=== PATIENT | female | born 1955 | race Caucasian/White ===

== ENCOUNTER 2022-07-09 19:21 | Observation (INO) | payer OTHER ==
[~2022-07-09] VITALS: Ht 162.6 cm; Wt 59.0 kg
[2022-07-09 20:08] LABS: BASO % 0.2 % (0.0-1.0); EOS % 0.2 % (0.0-3.0); HEMATOCRIT 40.8 % (36.0-47.0); HEMOGLOBIN 13.5 g/dl (12.0-15.5); LYMPH # 1.4 10^3/uL (1.5-5.0); MEAN CORPUSCULAR HEMOGLOBIN 28.8 pg (27.0-33.0); MEAN CORPUSCULAR HGB CONC 33.1 g/dl (32.0-36.5); MEAN CORPUSCULAR VOLUME 87.2 fl (80.0-96.0); MONO # 0.3 10^3/uL (0.0-0.8); MONO % 4.1 % (2.0-8.0); NEUTROPHILS # 6.4 10^3/uL (1.5-8.5); NEUTROPHILS % 78.3 % (36.0-66.0); PLATELET COUNT, AUTOMATED 296 10^3/uL (150-450); RED BLOOD COUNT 4.68 10^6/uL (4.00-5.40); WHITE BLOOD COUNT 8.2 10^3/uL (4.0-10.0)
[2022-07-09 20:38] LABS: CPK CREATINE PHOSPHOKINASE 80 U/L (26-192)
[2022-07-09 20:44] LABS: BLOOD UREA NITROGEN 12 MG/DL (7-18); CALCIUM LEVEL 9.2 MG/DL (8.8-10.2); CARBON DIOXIDE LEVEL 27 MEQ/L (21-32); CHLORIDE LEVEL 104 MEQ/L (98-107); CREATININE FOR GFR 0.58 MG/DL (0.55-1.30); GLOMERULAR FILTRATION RATE > 60.0 (>45); GLUCOSE, FASTING 153 MG/DL (70-100); NT-PRO BNP 398 PG/ML (<125); POTASSIUM SERUM 4.6 MEQ/L (3.5-5.1); SODIUM LEVEL 136 MEQ/L (136-145); THYROID STIMULATING HORMONE 0.245 uIU/ML (0.358-3.740)
[2022-07-09] MEDS ORDERED: NS 1,000 ML IV ONE (22:40)
[2022-07-09] MEDS ORDERED: ONDANSETRON 4MG 2ML VIAL IV ONE (22:40)
[2022-07-09 22:52] LABS: MAGNESIUM LEVEL 1.8 MG/DL (1.8-2.4)
[2022-07-09 23:19] LABS: D-DIMER QUANT 1793.87 ng/ml (<500)
[2022-07-09 23:40] LABS: CPK CREATINE PHOSPHOKINASE 79 U/L (26-192)
[2022-07-09] MEDS ORDERED: ISOVUE-370 76% 100ML VIAL As Ordered ONE (23:51)
[2022-07-10] MEDS ORDERED: MECLIZINE 25 MG TABLET PO ONE (01:40)
[2022-07-10] MEDS ORDERED: MECL-86 PO (02:14)
[2022-07-10] MEDS ORDERED: LEVO75TA4 PO (02:14)
[2022-07-10] MEDS ORDERED: AMLO1TAB25 PO (02:14)
[2022-07-10] MEDS ORDERED: LOSA50TA5 PO (02:14)
[2022-07-10] MEDS ORDERED: METF500T13 PO (02:14)
[2022-07-10] MEDS ORDERED: ATOR1TAB19 PO (02:14)
[2022-07-10] MEDS ORDERED: HOME MED LIST COMPLETE! XX SCH (02:15)
[2022-07-10] MEDS ORDERED: LORazepam 0.5 MG TAB PO PRN (02:50)
[2022-07-10] MEDS ORDERED: ACETAMINOPHEN TAB 650MG DOSE (2X325MG) PO PRN (02:50)
[2022-07-10] MEDS ORDERED: MECLIZINE 25 MG TABLET PO PRN (02:50)
[2022-07-10] MEDS ORDERED: LEVOTHYROXINE 75MCG TABLET (0.075MG) PO SCH (06:00)
[2022-07-10] MEDS ORDERED: metFORMIN (GLUCOPHAGE) 500MG TAB PO SCH (08:00)
[2022-07-10] MEDS ORDERED: hydroCHLOROthiazide 12.5 MG CAPSULE PO SCH (09:00)
[2022-07-10] MEDS ORDERED: LOSARTAN 50MG TABLET PO SCH (09:00)
[2022-07-10] MEDS ORDERED: ATORVASTATIN 10 MG TAB PO SCH (09:00)
[2022-07-10] MEDS ORDERED: ATOR40TA75 PO (10:27)
[2022-07-10] MEDS ORDERED: ASPI81CH33 PO (10:27)
[2022-07-10 11:00] VITALS: BP 132/57
[2022-07-10 11:01] VITALS: BP 138/63
[2022-07-10 11:03] VITALS: BP 123/62
[2022-07-10] MEDS ORDERED: CEFD300C41 PO ×2 (12:44→12:45)
== END 2022-07-10 13:09 | disposition home or self-care (01) ==
LOC: M ED 19:21 → M ED INP 19:22
PROVIDERS: ADMIT Internal Medicine; ATTEND Internal Medicine
DX: R42 Dizziness and giddiness (principal); R79.1 Abnormal coagulation profile; I44.7 Left bundle-branch block, unspecified; I65.22 Occlusion and stenosis of left carotid artery; E11.9 Type 2 diabetes mellitus without complications; I10 Essential (primary) hypertension; E78.5 Hyperlipidemia, unspecified; E03.9 Hypothyroidism, unspecified; N39.0 Urinary tract infection, site not specified; B96.20 Unspecified Escherichia coli [E. coli] as the cause of diseases classified elsewhere; H91.91 Unspecified hearing loss, right ear; H93.11 Tinnitus, right ear; Z79.899 Other long term (current) drug therapy; Z79.890 Hormone replacement therapy; Z79.84 Long term (current) use of oral hypoglycemic drugs
CPT/HCPCS: 70450; 70496; 70498; 80048; 81000; 81015; 82550; 83735; 83880; 84443; 85025; 85379; 85730; 87088; 87186; 87635; 93005; 93970; 96361; 96374; 97161; 97530; 99284; J2405; Q9967

== ENCOUNTER → 2022-07-31 | Outpatient (REF) | payer OTHER ==
[~2022-07-31] MED LIST: AMLO1TAB25 PO; ASPI81CH33 PO; ATOR1TAB19 PO; ATOR40TA75 PO; CEFD300C41 PO; LEVO75TA4 PO; LOSA50TA5 PO; MECL-86 PO; METF500T13 PO
== END ==
LOC: M LAB REF 17:07
PROVIDERS: ATTEND Physician Assistant
DX: E03.9 Hypothyroidism, unspecified (principal)

== ENCOUNTER → 2022-09-27 | Outpatient (REF) | payer OTHER, MEDICARE ==
[2022-09-27 17:39] LABS: HEMOGLOBIN A1c 6.5 % (4.0-6.0)
== END ==
LOC: M LAB REF 16:24
PROVIDERS: ATTEND Physician Assistant
DX: E11.9 Type 2 diabetes mellitus without complications (principal)

== ENCOUNTER → 2022-12-18 | Outpatient (REF) | payer MEDICARE ==
[2022-12-18 17:05] LABS: HEMATOCRIT 41.3 % (36.0-47.0); HEMOGLOBIN 13.2 g/dl (12.0-15.5); MEAN CORPUSCULAR HEMOGLOBIN 29.5 pg (27.0-33.0); MEAN CORPUSCULAR VOLUME 92.2 fl (80.0-96.0); PLATELET COUNT, AUTOMATED 304 10^3/uL (150-450); RED BLOOD COUNT 4.48 10^6/uL (4.00-5.40); WHITE BLOOD COUNT 4.8 10^3/uL (4.0-10.0)
[2022-12-18 17:06] LABS: ALBUMIN 3.9 G/DL (3.2-5.2); ALKALINE PHOSPHATASE 71 U/L (46-116); ALT/SGPT 29 U/L (7.0-40); AST/SGOT 22 U/L (<34); BILIRUBIN,TOTAL 0.7 MG/DL (0.3-1.2); BLOOD UREA NITROGEN 17 MG/DL (9-23); CARBON DIOXIDE LEVEL 29 MMOL/L (20-31); CHLORIDE LEVEL 105 MMOL/L (98-107); CHOLESTEROL LEVEL 159 MG/DL (<200); CREATININE FOR GFR 0.72 MG/DL (0.55-1.30); GLOMERULAR FILTRATION RATE > 60.0 (>45); GLUCOSE, FASTING 104 MG/DL (74-106); HDL CHOLESTEROL 61.1 MG/DL (>40); LDL CHOLESTEROL 85.9 MG/DL (<100); NON-HDL-C 97.9 MG/DL; POTASSIUM SERUM 4.4 MMOL/L (3.5-5.1); SODIUM LEVEL 139 MMOL/L (136-145); TRIGLYCERIDES LEVEL 60 MG/DL (<150)
[2022-12-18 17:33] LABS: THYROID STIMULATING HORMONE 10.788 uIU/ML (0.55-4.78)
[2022-12-18 17:35] LABS: HEMOGLOBIN A1c 6.5 % (4.0-6.0)
== END ==
LOC: M LAB REF 16:30
PROVIDERS: ATTEND Physician Assistant
DX: E11.9 Type 2 diabetes mellitus without complications (principal); E03.9 Hypothyroidism, unspecified

== ENCOUNTER → 2023-02-07 | Outpatient (REF) | payer MEDICARE ==
[~2023-02-07] MED LIST changes: +LEVO25TA5 PO
== END ==
LOC: M LAB REF 16:29
PROVIDERS: ATTEND Physician Assistant
DX: E03.9 Hypothyroidism, unspecified (principal)

== ENCOUNTER 2023-02-08 22:03 | Emergency (ER) | payer MEDICARE ==
[~2023-02-08] VITALS: Ht 162.6 cm; Wt 62.2 kg
[~2023-02-08 22:03] MED LIST changes: -LEVO25TA5 PO
[2023-02-08] MEDS ORDERED: LEVO25TA5 PO (22:15)
[2023-02-09] MEDS ORDERED: CAPS0.022 TOP (07:15)
[2023-02-09] MEDS ORDERED: DICL1GEL3 TOP (07:15)
[2023-02-09 07:56] VITALS: BP 160/70
== END 2023-02-09 07:58 | disposition home or self-care (01) ==
LOC: M ED 22:03
DX: S89.91XA Unspecified injury of right lower leg, initial encounter (principal); X58.XXXA Exposure to other specified factors, initial encounter; Y92.410 Unspecified street and highway as the place of occurrence of the external cause; Y93.01 Activity, walking, marching and hiking; Y99.8 Other external cause status; I10 Essential (primary) hypertension; E11.9 Type 2 diabetes mellitus without complications; Z79.82 Long term (current) use of aspirin; Z79.899 Other long term (current) drug therapy; Z79.84 Long term (current) use of oral hypoglycemic drugs

== ENCOUNTER → 2023-03-30 | Outpatient (REF) | payer MEDICARE ==
[~2023-03-30] MED LIST changes: +CAPS0.022 TOP; +DICL1GEL3 TOP; +LEVO25TA5 PO
== END ==
LOC: M LAB REF 16:31
PROVIDERS: ATTEND Physician Assistant
DX: E03.9 Hypothyroidism, unspecified (principal)

== ENCOUNTER → 2023-06-14 | Outpatient (CLI) | payer MEDICARE ==
[~2023-06-14] MED LIST changes: +DICL100G10 TOP; -DICL1GEL3 TOP
== END ==
LOC: M WUC 13:48
PROVIDERS: ATTEND Physician Assistant
DX: E03.9 Hypothyroidism, unspecified (principal)

== ENCOUNTER → 2023-08-15 | Outpatient (REF) | payer MEDICARE ==
[~2023-08-15] MED LIST changes: -CEFD300C41 PO; +CEFD300C42 PO
[2023-08-15 16:41] LABS: HEMATOCRIT 37.9 % (36.0-47.0); HEMOGLOBIN 12.5 g/dl (12.0-15.5); MEAN CORPUSCULAR HEMOGLOBIN 29.3 pg (27.0-33.0); PLATELET COUNT, AUTOMATED 277 10^3/uL (150-450); RED BLOOD COUNT 4.26 10^6/uL (4.00-5.40); WHITE BLOOD COUNT 5.3 10^3/uL (4.0-10.0)
[2023-08-15 17:08] LABS: CREATININE, URINE 105.9 MG/DL; MALB URINE SIEMENS < 3.0 MG/L; MAU/CREAT RATIO 2.8 MCG/MG (0.0-30.0)
[2023-08-15 17:11] LABS: ALBUMIN 3.6 G/DL (3.2-5.2); ALKALINE PHOSPHATASE 105 U/L (46-116); ALT/SGPT 38 U/L (7.0-40); AST/SGOT 23 U/L (<34); BILIRUBIN,TOTAL 0.7 MG/DL (0.3-1.2); BLOOD UREA NITROGEN 17 MG/DL (9-23); CALCIUM LEVEL 8.8 MG/DL (8.3-10.6); CARBON DIOXIDE LEVEL 29 MMOL/L (20-31); CHLORIDE LEVEL 104 MMOL/L (98-107); CHOLESTEROL LEVEL 168 MG/DL (<200); CHOLESTEROL RISK RATIO 2.66 (<5); GLOMERULAR FILTRATION RATE > 60.0 (>45); GLUCOSE, FASTING 112 MG/DL (74-106); LDL CHOLESTEROL 91.8 MG/DL (<100); POTASSIUM SERUM 4.5 MMOL/L (3.5-5.1); SODIUM LEVEL 139 MMOL/L (136-145); TOTAL PROTEIN 6.5 G/DL (5.7-8.2); TRIGLYCERIDES LEVEL 66 MG/DL (<150)
[2023-08-15 17:12] LABS: HEMOGLOBIN A1c 6.6 % (4.0-6.0); THYROID STIMULATING HORMONE 2.625 uIU/ML (0.55-4.78)
== END ==
LOC: M LAB REF 16:13
PROVIDERS: ATTEND Physician Assistant
DX: E11.9 Type 2 diabetes mellitus without complications (principal); I10 Essential (primary) hypertension; E03.9 Hypothyroidism, unspecified

== ENCOUNTER → 2024-01-01 | Outpatient (REF) ==
[~2024-01-01] MED LIST changes: +CEFD1CAP9 PO; -CEFD300C42 PO
== END ==
LOC: M LAB 15:40
PROVIDERS: ATTEND Nurse Practitioner Adult Health
DX: Z01.89 Encounter for other specified special examinations (principal)

== ENCOUNTER → 2024-04-14 | Outpatient (CLI) | payer MEDICARE, OTHER | LOC: M RAD 13:38 | PROVIDERS: ATTEND Surgery | DX: I65.23 Occlusion and stenosis of bilateral carotid arteries (principal) ==

== ENCOUNTER → 2024-06-18 | Outpatient (REF) | payer MEDICARE, OTHER ==
[2024-06-18 18:29] LABS: HEMATOCRIT 36.8 % (36.0-47.0); HEMOGLOBIN 12.1 g/dl (12.0-15.5); MEAN CORPUSCULAR HEMOGLOBIN 29.7 pg (27.0-33.0); MEAN CORPUSCULAR HGB CONC 32.9 g/dl (32.0-36.5); MEAN CORPUSCULAR VOLUME 90.4 fl (80.0-96.0); PLATELET COUNT, AUTOMATED 287 10^3/uL (150-450); RED BLOOD COUNT 4.07 10^6/uL (4.00-5.40); WHITE BLOOD COUNT 6.1 10^3/uL (4.0-10.0)
[2024-06-18 18:40] LABS: ALBUMIN 3.5 G/DL (3.2-5.2); ALKALINE PHOSPHATASE 99 U/L (46-116); ALT/SGPT 25 U/L (7.0-40); AST/SGOT 18 U/L (<34); BILIRUBIN,TOTAL 0.6 MG/DL (0.3-1.2); BLOOD UREA NITROGEN 18 MG/DL (9-23); CALCIUM LEVEL 8.7 MG/DL (8.3-10.6); CARBON DIOXIDE LEVEL 28 MMOL/L (20-31); CHLORIDE LEVEL 108 MMOL/L (98-107); CHOLESTEROL LEVEL 172 MG/DL (<200); CHOLESTEROL RISK RATIO 2.43 (<5); CREATININE FOR GFR 0.67 MG/DL (0.55-1.30); GLOMERULAR FILTRATION RATE > 60.0 (>45); GLUCOSE, FASTING 112 MG/DL (74-106); HDL CHOLESTEROL 70.7 MG/DL (>40); LDL CHOLESTEROL 90.1 MG/DL (<100); NON-HDL-C 101.3 MG/DL; POTASSIUM SERUM 4.1 MMOL/L (3.5-5.1); SODIUM LEVEL 138 MMOL/L (136-145); TOTAL PROTEIN 6.6 G/DL (5.7-8.2); TRIGLYCERIDES LEVEL 56 MG/DL (<150)
[2024-06-18 18:42] LABS: THYROID STIMULATING HORMONE 6.379 uIU/ML (0.55-4.78)
== END ==
LOC: M LAB REF 16:29
PROVIDERS: ATTEND Physician Assistant
DX: I10 Essential (primary) hypertension (principal); E03.9 Hypothyroidism, unspecified

== ENCOUNTER → 2024-08-14 | Outpatient (REF) | payer MEDICARE, OTHER | LOC: M LAB REF 16:48 | PROVIDERS: ATTEND Physician Assistant | DX: E03.9 Hypothyroidism, unspecified (principal) ==

== ENCOUNTER → 2024-10-02 | Outpatient (REF) | payer MEDICARE, OTHER | LOC: M LAB REF 16:10 | PROVIDERS: ATTEND Physician Assistant | DX: E11.9 Type 2 diabetes mellitus without complications (principal); E03.9 Hypothyroidism, unspecified ==

== ENCOUNTER → 2024-10-02 | Outpatient (REF) | payer MEDICARE, OTHER ==
[2024-10-02 18:35] LABS: CREATININE, URINE 105.8 MG/DL; MAU/CREAT RATIO 4.7 MCG/MG (0.0-30.0)
== END ==
LOC: M LAB REF 16:02
PROVIDERS: ATTEND Physician Assistant
DX: E11.9 Type 2 diabetes mellitus without complications (principal)